=== PATIENT | male | born 1950 | race Caucasian/White ===

== ENCOUNTER 2023-10-11 17:43 | Inpatient (IN) | payer MEDICARE, OTHER ==
[~2023-10-11] VITALS: Ht 165.1 cm; Wt 72.1 kg
[2023-10-11] MEDS ORDERED: ACET-868 PO ×2 (18:22)
[2023-10-11] MEDS ORDERED: FAMO20TA80 PO (18:22)
[2023-10-11] MEDS ORDERED: CLON0.1T PO (18:22)
[2023-10-11] MEDS ORDERED: BUSP5TAB3 PO (18:22)
[2023-10-11] MEDS ORDERED: VENL37.510 PO (18:22)
[2023-10-11] MEDS ORDERED: MAGN400O6 PO (18:22)
[2023-10-11] MEDS ORDERED: FENO50CA4 PO (18:22)
[2023-10-11] MEDS ORDERED: HYDR-4303 PO (18:22)
[2023-10-11] MEDS ORDERED: TAMS-12 PO (18:22)
[2023-10-11] MEDS ORDERED: LACO200T2 PO (18:22)
[2023-10-11] MEDS ORDERED: LAMO150T2 PO (18:22)
[2023-10-11] MEDS ORDERED: NA P133E RC (18:22)
[2023-10-11] MEDS ORDERED: GABA300C PO (18:22)
[2023-10-11] MEDS ORDERED: BISA10SU11 RC (18:22)
[2023-10-11] MEDS ORDERED: SODI100037 PO (18:22)
[2023-10-11] MEDS ORDERED: IPRA3AMP22 IH (18:22)
[2023-10-11] MEDS ORDERED: METO25TA6 PO (18:22)
[2023-10-11] MEDS ORDERED: APIX5TAB PO (18:22)
[2023-10-11 19:11] LABS: BASOPHILS % (AUTO) 0.3 % (0.0-2.0); EOSINOPHILS # (AUTO) 0.1 K/uL (0.0-0.7); EOSINOPHILS % (AUTO) 1.1 % (0.0-6.0); HEMATOCRIT 45 % (39-51); HEMOGLOBIN 15.1 g/dL (13.5-17.5); LYMPHOCYTES % (AUTO) 10.5 % (20.0-44.0); MEAN CORPUSCULAR HEMOGLOBIN 32 PG (26.0-33.0); MEAN CORPUSCULAR HGB CONC 34 g/dl (31.0-36.0); MEAN CORPUSCULAR VOLUME 95 fL (80-96); MONOCYTES # (AUTO) 0.9 K/uL (0.1-1.30); NEUTROPHILS # (AUTO) 7.6 K/uL (1.8-8.9); NEUTROPHILS % (AUTO) 79.1 % (43.0-81.0); PLATELET COUNT (AUTO) 332 K/uL (150-450); RED BLOOD CELL COUNT(AUTO) 4.72 MIL/uL (4.5-6.0); WHITE BLOOD COUNT (AUTO) 9.6 K/uL (4.3-11.0)
[2023-10-11 19:18] LABS: CARBON DIOXIDE 29 mmol/L (21-32); CHLORIDE 102 mmol/L (98-107); GLUCOSE 98 mg/dL (74-106); POTASSIUM 3.6 mmol/L (3.5-5.1); SODIUM SERUM 138 mmol/L (136-145); UREA NITROGEN, BLOOD 12 mg/dL (7-18)
[2023-10-11 19:25] LABS: ALANINE AMINOTRANSFERASE 29 U/L (12-78); ALBUMIN 3.6 g/dL (3.4-5.0); ALCOHOL, BLOOD < 3 mg/dL (0-10); ALKALINE PHOSPHATASE 44 U/L (46-116); ASPARTATE AMINOTRANSFERASE 17 U/L (15-37); BILIRUBIN,DIRECT 0.1 mg/dL (0.0-0.2); BILIRUBIN,TOTAL 0.2 mg/dL (0.2-1.0); TOTAL PROTEIN, SERUM 8.2 g/dL (6.4-8.2)
[2023-10-11 19:33] LABS: SALICYLATE 1.1 mg/dL (2.8-20.0)
[2023-10-11 19:34] LABS: ACETAMINOPHEN <10 ug/ml (10-30)
[2023-10-11 19:34] LABS: APPEARANCE,URINE Clear (CLEAR); BILIRUBIN,URINE Negative (NEGATIVE); BLOOD, URINE Small Ery/uL (NEGATIVE); COLOR,URINE YELLOW (YELLOW); KETONES,URINE Negative (NEGATIVE); LEUKOCYTE ESTERASE ,URINE Trace (NEGATIVE); NITRITE, URINE Negative (NEGATIVE); PROTEIN,URINE Negative (NEGATIVE); UGLUCOSE Negative (NEGATIVE); UROBILINOGEN,URINE 0.2 EU/dL (0.2)
[2023-10-11 19:43] LABS: CALCIUM, SERUM 9.3 mg/dL (8.5-10.1)
[2023-10-11 19:49] LABS: AMPHETAMINE, URINE NEGATIVE (NEGATIVE); BARBITURATE, URINE NEGATIVE (NEGATIVE); BENZODIAZEPINE, URINE NEGATIVE (NEGATIVE); CANNABINOID, URINE NEGATIVE (NEGATIVE); COCCAINE, URINE NEGATIVE (NEGATIVE); OPIATE, URINE NEGATIVE (NEGATIVE); PHENCYCLIDINE SCREEN,URINE NEGATIVE (NEGATIVE)
[2023-10-11 20:05] LABS: ADD URINE CULTURE NO; BACTERIA,URINE 1+ /HPF (None Seen); SQUAMOUS EPITHELIAL CELL,UR None Seen /HPF (None Seen)
[2023-10-11] MEDS ORDERED: CEFTRIAXONE 1GM BAG (ER ONLY) 50 ML IV ONE (21:10)
[2023-10-11] MEDS: CEFTRIAXONE 1 G in IV D5W 50 ML IV ONE (21:20)
[2023-10-12] MEDS ORDERED: ZOLPIDEM TARTRATE 5 MG TABLET PO PRN (01:00)
[2023-10-12] MEDS ORDERED: MAGNESIUM HYDROXIDE 30 ML UDC PO PRN (01:00)
[2023-10-12] MEDS ORDERED: MAG HYDROX/AL HYDROX/SIMETH 30 ML UDC PO PRN (01:00)
[2023-10-12] MEDS ORDERED: QUETIAPINE FUMARATE 25 MG TABLET PO PRN (01:00)
[2023-10-12] MEDS: BLOOD SUGAR DIAGNOSTIC 1 EACH STRIP IN ONE (01:41)
[2023-10-12 03:30] VITALS: BP 158/87; TEMP 97.7
[2023-10-12 07:51] LABS: ALBUMIN 3.2 g/dL (3.4-5.0); BILIRUBIN,TOTAL 0.3 mg/dL (0.2-1.0); CALCIUM, SERUM 9.3 mg/dL (8.5-10.1); POTASSIUM 3.6 mmol/L (3.5-5.1); TOTAL PROTEIN, SERUM 7.8 g/dL (6.4-8.2)
[2023-10-12 08:00] VITALS: BP 121/81; TEMP 97.8; O2SAT 96
[2023-10-12] MEDS: TAMSULOSIN 0.4 MG CAP.SR.24H PO SCH (09:01)
[2023-10-12] MEDS: SODIUM CHLORIDE 1000 MG TABLET PO SCH (09:01)
[2023-10-12] MEDS: FAMOTIDINE (20 MG) 20 MG TABLET PO SCH (09:01)
[2023-10-12] MEDS: GABAPENTIN 300 MG CAPSULE PO SCH (09:01)
[2023-10-12] MEDS: METOPROLOL TARTRATE 25 MG TABLET PO SCH (09:02)
[2023-10-12] MEDS: APIXABAN 5 MG TABLET PO SCH (09:03)
[2023-10-12 16:00] VITALS: BP 143/103; TEMP 98.2; O2SAT 96
[2023-10-12] MEDS: LamoTRIgine 100 MG TABLET PO SCH (16:36)
[2023-10-12] MEDS: LACOSAMIDE 50 MG TABLET PO SCH (16:36)
[2023-10-12] MEDS: busPIRone 5 MG TABLET PO SCH (16:37)
[2023-10-12 20:26] VITALS: BP 171/90; TEMP 98.2; O2SAT 97
[2023-10-12] MEDS: CLONIDINE HCL 0.1 MG TABLET PO PRN (22:19)
[2023-10-12] MEDS: IPRATROPIUM NEB FS 0.5 MG/2.5 ML AMPUL.NEB NEB SCH (22:38)
[2023-10-12] MEDS: ALBUTEROL FS 2.5 MG/0.5 ML VIAL.NEB NEB SCH (22:38)
[2023-10-12 23:35] VITALS: BP 158/102
[2023-10-13] VITALS (7 sets, daily range): BP systolic 127–149; BP diastolic 76–89; TEMP 97.9–98.6; O2SAT 95–97
[2023-10-13 08:03] LABS: CHOLESTEROL 215 mg/dL (<200); HDL CHOLESTEROL 33 mg/dL (40-60); LDL 140 mg/dL (0-99); TRIGLYCERIDES 211 mg/dL (30-150)
[2023-10-13] MEDS: FENOFIBRATE NANOCRYS (145 MG) 145 MG TABLET PO SCH (08:30)
[2023-10-13] MEDS: OXCARBAZEPINE 150 MG TABLET PO SCH (08:31)
[2023-10-13] MEDS: Z GUARD REMEDY 4 OZ OINT TP SCH (11:00)
[2023-10-13] MEDS: Z GUARD REMEDY 4 OZ OINT TP PRN (12:57)
[2023-10-13] MEDS: CLOTRIMAZOLE 1% 15 GM TUBE TP SCH (16:36)
[2023-10-14 08:00] VITALS: BP 144/90; TEMP 98; O2SAT 97
[2023-10-14] MEDS: MUPIROCIN OINT 2% 22 GM TUBE NS SCH (11:36)
[2023-10-14] MEDS: OXCARBAZEPINE 150 MG TABLET PO SCH (12:46)
[2023-10-14 16:00] VITALS: BP 159/95; TEMP 97.9; O2SAT 96
[2023-10-14 20:00] VITALS: BP 137/86; TEMP 98.4; O2SAT 97
[2023-10-14 22:00] VITALS: BP 137/86
[2023-10-15 08:00] VITALS: BP 146/83; TEMP 97.8; O2SAT 95
[2023-10-15 10:00] VITALS: BP 109/76
[2023-10-15 16:00] VITALS: BP 161/94; TEMP 97.7; O2SAT 94
[2023-10-15] MEDS: busPIRone 5 MG TABLET PO SCH (16:28)
[2023-10-15 20:00] VITALS: BP 148/87; TEMP 97.9; O2SAT 96
[2023-10-15 20:28] VITALS: O2SAT 97
[2023-10-15 22:00] VITALS: BP 148/87
[2023-10-16] VITALS (7 sets, daily range): BP systolic 159–206; BP diastolic 84–89; TEMP 97.9–98.2; O2SAT 94–98
[2023-10-16] MEDS: IPRATROPIUM NEB FS 0.5 MG/2.5 ML AMPUL.NEB NEB PRN (21:33)
[2023-10-16] MEDS: ALBUTEROL FS 2.5 MG/0.5 ML VIAL.NEB NEB PRN (21:34)
[2023-10-16] MEDS: OXCARBAZEPINE 150 MG TABLET PO SCH (21:47)
[2023-10-17 08:00] VITALS: BP 130/83; TEMP 97.9; O2SAT 99
[2023-10-17] MEDS: OXCARBAZEPINE 150 MG TABLET PO SCH (09:19)
[2023-10-17 10:00] VITALS: BP 130/83
[2023-10-17] MEDS: HYDROCODONE/APAP 5/325MG TABLET PO PRN (19:09)
[2023-10-17 20:48] VITALS: BP 166/67; TEMP 97.6; O2SAT 96
[2023-10-17 22:00] VITALS: BP 153/83
[2023-10-18 08:00] VITALS: BP 157/88; TEMP 98; O2SAT 98
[2023-10-18 10:00] VITALS: BP 157/88
[2023-10-18 16:00] VITALS: BP 151/84; TEMP 98.1; O2SAT 98
[2023-10-18 20:46] VITALS: BP 161/83; TEMP 98.2; O2SAT 97
[2023-10-18 22:00] VITALS: BP 153/83
[2023-10-18 22:34] VITALS: BP 146/80; TEMP 98
[2023-10-19 08:00] VITALS: BP 158/90; TEMP 97.6; O2SAT 94
[2023-10-19 10:00] VITALS: BP 158/90
[2023-10-19] MEDS: OLANZAPINE 10 MG VIAL IM ONE (15:50)
[2023-10-19 16:08] VITALS: BP 192/103; TEMP 97.8; O2SAT 96
[2023-10-19] MEDS: OXCARBAZEPINE 150 MG TABLET PO SCH (16:53)
[2023-10-19] MEDS ORDERED: CLONIDINE HCL 0.1MG/24H PTWK 1 EA PATCH TD SCH (18:00)
[2023-10-19 20:46] VITALS: BP 114/75; TEMP 98.4; O2SAT 96
[2023-10-19 22:00] VITALS: BP 114/75
[2023-10-19] MEDS: QUETIAPINE FUMARATE 25 MG TABLET PO SCH (22:17)
[2023-10-20 08:00] VITALS: BP 119/79; TEMP 97.6; O2SAT 97
[2023-10-20] MEDS: CLONIDINE HCL 0.1MG/24H PTWK 1 EA PATCH TD SCH (09:00)
[2023-10-20 10:00] VITALS: BP 119/79
[2023-10-20 16:00] VITALS: BP 184/79; TEMP 97.8; O2SAT 98
[2023-10-20] MEDS: METOPROLOL TARTRATE 25 MG TABLET PO SCH (16:48)
[2023-10-20] MEDS: hydrALAZINE HCL 25 MG TABLET PO SCH (16:54)
[2023-10-20 17:50] VITALS: BP 130/60; TEMP 97.8; O2SAT 96
[2023-10-20 20:00] VITALS: BP 141/75; TEMP 98.4; O2SAT 96
[2023-10-20 22:00] VITALS: BP 141/75
[2023-10-21 08:00] VITALS: BP 137/85; TEMP 98; O2SAT 100
[2023-10-21] MEDS: QUETIAPINE FUMARATE 25 MG TABLET PO SCH (08:41)
[2023-10-21 10:00] VITALS: BP 137/85
[2023-10-21 16:00] VITALS: BP 192/88; TEMP 98.6; O2SAT 98
[2023-10-21 17:47] VITALS: BP 115/61; TEMP 98.4; O2SAT 98
[2023-10-21 20:00] VITALS: BP 135/80; TEMP 98.4; O2SAT 96
[2023-10-21 22:26] VITALS: BP 135/80
[2023-10-22 08:00] VITALS: BP 156/74; TEMP 97.9; O2SAT 99
[2023-10-22 10:00] VITALS: BP 138/98
[2023-10-22 16:00] VITALS: BP 148/78; TEMP 98.1; O2SAT 97
[2023-10-22 20:00] VITALS: BP 168/82; TEMP 98.6; O2SAT 96
[2023-10-22 22:00] VITALS: BP 168/82
[2023-10-23 08:00] VITALS: BP 179/83; TEMP 97.7; O2SAT 100
[2023-10-23 10:00] VITALS: BP 179/83
[2023-10-23 10:30] VITALS: BP 149/79; TEMP 97.8; O2SAT 100
[2023-10-23] MEDS: hydrALAZINE HCL 50 MG TABLET PO SCH (13:22)
[2023-10-23 16:00] VITALS: BP 123/72; TEMP 98; O2SAT 99
[2023-10-23 20:00] VITALS: BP 126/98; TEMP 98.4; O2SAT 95
[2023-10-23] MEDS: OXCARBAZEPINE 150 MG TABLET PO SCH (21:20)
[2023-10-23 22:00] VITALS: BP 126/98
[2023-10-24 08:00] VITALS: BP 135/68; TEMP 98.4; O2SAT 97
[2023-10-24] MEDS: OXCARBAZEPINE 150 MG TABLET PO SCH (09:26)
[2023-10-24 10:00] VITALS: BP 135/68
[2023-10-24 16:00] VITALS: BP 128/73; TEMP 98.7; O2SAT 97
[2023-10-24 20:30] VITALS: TEMP 97.3; O2SAT 96
[2023-10-24] MEDS: MIRTAZAPINE 15 MG TABLET PO SCH (21:14)
[2023-10-24 22:00] VITALS: BP 151/68
[2023-10-25 08:00] VITALS: BP 123/76; TEMP 97.9; O2SAT 97
[2023-10-25 10:00] VITALS: BP 123/77
[2023-10-25 16:00] VITALS: BP 113/91; TEMP 98.6; O2SAT 96
[2023-10-25] MEDS: ENSURE ENLIVE 237 ML LIQUID (VANILLA) PO SCH (16:31)
[2023-10-25 20:23] VITALS: BP 143/81; TEMP 98.2; O2SAT 99
[2023-10-25 22:00] VITALS: BP 143/81
[2023-10-26] MEDS: ACETAMINOPHEN 325 MG TABLET PO PRN (01:59)
[2023-10-26 08:00] VITALS: BP 142/80; TEMP 97.8; O2SAT 96
[2023-10-26 10:00] VITALS: BP 142/80
[2023-10-26 13:23] VITALS: BP 138/72
== END 2023-10-26 15:00 | DRG 881 ==
LOC: ER 17:51 → GPS 10-12 00:09
PROVIDERS: ADMIT Psychiatry & Neurology Psychiatry; ATTEND Nurse Practitioner Acute Care
DX: F32.9 Major depressive disorder, single episode, unspecified (principal); I69.351 Hemiplegia and hemiparesis following cerebral infarction affecting right dominant side; G93.49 Other encephalopathy; F02.82 Dementia in other diseases classified elsewhere, unspecified severity, with psychotic disturbance; F02.83 Dementia in other diseases classified elsewhere, unspecified severity, with mood disturbance; F02.84 Dementia in other diseases classified elsewhere, unspecified severity, with anxiety; D68.59 Other primary thrombophilia; N39.0 Urinary tract infection, site not specified; F29 Unspecified psychosis not due to a substance or known physiological condition; I10 Essential (primary) hypertension; N40.0 Benign prostatic hyperplasia without lower urinary tract symptoms; K21.9 Gastro-esophageal reflux disease without esophagitis; F39 Unspecified mood [affective] disorder; G20.A1 Parkinson's disease without dyskinesia, without mention of fluctuations; I48.91 Unspecified atrial fibrillation; G40.909 Epilepsy, unspecified, not intractable, without status epilepticus; R13.10 Dysphagia, unspecified; I69.320 Aphasia following cerebral infarction; Z79.01 Long term (current) use of anticoagulants; Z79.899 Other long term (current) drug therapy; Z79.51 Long term (current) use of inhaled steroids; F41.9 Anxiety disorder, unspecified
CPT/HCPCS: 31720; 36415; 80048-TC; 80053-TC; 80061-TC; 80076-TC; 81001; 82565-TC; 82962-TC; 85025-TC; 87081-TC; 92526; 92611-TC; 94762-TC; 94799-TC; 97110-TC; 97112-TC; 97530-TC; G0480; J0696; J3490; J7060